=== PATIENT | female | born 1995 | race Caucasian/White ===

== ENCOUNTER 2024-05-07 00:50 | Emergency (ER) | payer MEDICAID ==
[~2024-05-07] VITALS: Ht 160 cm; Wt 83.9 kg
[2024-05-07] MEDS ORDERED: FAMOTIDINE (20 MG) 20 MG TABLET ONE (01:14)
[2024-05-07] MEDS ORDERED: diphenhydrAMINE HCL 50 MG/ML VIAL ONE (01:14)
[2024-05-07] MEDS ORDERED: dexaMETHasone SOD PHOSPHATE 1 ML ONE (01:14)
[2024-05-07] MEDS: diphenhydrAMINE HCL 50 MG/ML VIAL IM ONE (01:26)
[2024-05-07] MEDS: dexaMETHasone SOD PHOSPHATE 4 MG/ML VIAL IM ONE (01:26)
[2024-05-07] MEDS: FAMOTIDINE (20 MG) 20 MG TABLET PO ONE (01:26)
[2024-05-07 02:44] VITALS: BP 118/81; TEMP 98; O2SAT 98
== END 2024-05-07 02:46 | disposition home or self-care (01) ==
LOC: ER 00:53
DX: T78.3XXA Angioneurotic edema, initial encounter (principal); Z88.2 Allergy status to sulfonamides; X58.XXXA Exposure to other specified factors, initial encounter
CPT/HCPCS: 99284; 96372; J1100; J1200